=== PATIENT | male | born 2005 | race Caucasian/White ===

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

== ENCOUNTER 2024-05-14 02:21 | Emergency (ER) | payer MEDICAID, MEDICARE, OTHER ==
[~2024-05-14] VITALS: Ht 175.3 cm; Wt 54.5 kg
[2024-05-14 02:33] VITALS: TEMP 98.1
[2024-05-14 05:23] VITALS: BP 130/66; O2SAT 98
== END 2024-05-14 05:25 | disposition home or self-care (01) ==
LOC: M ED 02:21
DX: F10.129 Alcohol abuse with intoxication, unspecified (principal); F17.200 Nicotine dependence, unspecified, uncomplicated; Z88.0 Allergy status to penicillin; Z91.030 Bee allergy status